=== PATIENT | female | born 1960 | race Caucasian/White ===

== ENCOUNTER → 2018-03-19 | Outpatient (REF) | payer MEDICARE ==
[2018-03-19 17:27] LABS: APPEARANCE, URINE CLEAR (CLEAR); BACTERIA, URINE AUTO NEGATIVE (NEGATIVE); BILIRUBIN, URINE AUTO NEGATIVE (NEGATIVE); BLOOD, URINE BLOOD NEGATIVE (NEGATIVE); COLOR, URINE YELLOW (YELLOW); GLUCOSE, URINE (UA) AUTO NEGATIVE (NEGATIVE); KETONE, URINE AUTO NEGATIVE (NEGATIVE); LEUKOCYTE ESTERASE, URINE AUTO NEGATIVE (NEGATIVE); NITRITE, URINE AUTO NEGATIVE (NEGATIVE); PROTEIN, URINE AUTO NEGATIVE (NEGATIVE); RBC, URINE AUTO 1 /HPF (0-3); SPECIFIC GRAVITY URINE AUTO 1.013 (1.002-1.035); SQUAMOUS EPITHELIAL CELL UR AU 1 /HPF (0-6); WBC, URINE AUTO 9 /HPF (0-3)
== END ==
LOC: M LAB REF 16:28
DX: N39.41 Urge incontinence (principal)
CPT/HCPCS: 81001

== ENCOUNTER 2020-10-27 14:42 | Emergency (ER) | payer MEDICARE, MEDICAID ==
[~2020-10-27] VITALS: Ht 167.6 cm; Wt 101.6 kg
[~2020-10-27 14:42] MED LIST: ASPI81TA85 PO; BACL10TA2 PO; CELE1CAP4 PO; CHAN1PAK9 PO; CYMB60CA3 PO; LIDO5DIS41 TOP; LYRI75CA PO; METF500T PO; MORP15TA2 PO; PANT40TA2 PO; PERC10TA26 PO; PRAV40TA2 PO; VITA100037 PO
[2020-10-27 14:43] VITALS: BP 150/72
[2020-10-27] MEDS ORDERED: DULO1CAP6 (14:55)
[2020-10-27] MEDS ORDERED: PANT40TA29 (14:55)
[2020-10-27] MEDS ORDERED: TRAZ-189 (14:55)
[2020-10-27] MEDS ORDERED: ATOR40TA75 (14:55)
[2020-10-27] MEDS ORDERED: AMIT50TA (14:55)
== END 2020-10-27 15:54 | disposition home or self-care (01) ==
LOC: M ED 14:42
DX: J06.9 Acute upper respiratory infection, unspecified (principal); B34.9 Viral infection, unspecified; E78.5 Hyperlipidemia, unspecified; F33.9 Major depressive disorder, recurrent, unspecified; K21.9 Gastro-esophageal reflux disease without esophagitis; M79.7 Fibromyalgia; Z79.899 Other long term (current) drug therapy; Z79.82 Long term (current) use of aspirin; F17.210 Nicotine dependence, cigarettes, uncomplicated
CPT/HCPCS: 99282; U0003